=== PATIENT | female | born 1930 | race Caucasian/White ===

== ENCOUNTER 2018-12-24 15:34 | Emergency (ER) | payer OTHER, BC ==
[2018-12-24 15:56] VITALS: BP 155/70; PULSE 78; TEMP 97.4; BMI 32.3
--- NOTE | 2018-12-24 17:36 | PDOC ---
Attending Attestation - Resident Resident Name: CrissLebron - ED Attending Attestation I have performed the following: I have examined & evaluated the patient, The case was reviewed & discussed with the resident, I agree w/resident's findings & plan, Exceptions are as noted - Medical Decision Making 12/24/18 17:36 I, Dr. Angela Perera, DO, attest that this document has been prepared under my direction and personally reviewed by me in its entirety. I further attest, that it accurately reflects all work, treatment, procedures and medical decision -making performed by me. 12/24/18 19:33 a/p: 87yo female with mechanical fall at home in the kitchen, tripped in her sneakers -no loc -hit her face with abrasions and hematoma -no neck or back pain -R shoulder pain -will send for xrays, suspect humerus fx -will obtain head and c spine ct -tylenol for pain -will po challenge when head and cspine ct negaitve -no anticoags, only baby asa -will ambulate prior to dc 12/24/18 19:[address] spine [address] negaitve surgical neck fx in R humerus- follows with ortho at [facility] -placed in a sling tetanus utd po challenge given <Angela Perera - Last Filed: 12/24/18 19:33> - HPI HPI: 12/24/18 18:11 The patient is an 87 year old female with a past medical history of HTN, HLD, and hypothyroidism here today for evaluation s/p mechanical fall. The patient reports that she was walking in her kitchen when she tripped and fell landing on her right side and grazing her head on the counter. She reports pain in the upper right arm. Patient denies headache, lightheadedness. Denies fever, chills. Denies chest pain, shortness of breath. Denies nausea, vomiting, diarrhea, abdominal pain. Allergies: NKA PCP: Merlyn Sanchez - Physicial Exam PE: 12/24/18 19:39 Constitutional: Awake, alert, oriented. No acute distress. Head: Normocephalic. Atraumatic Eyes: PERRL. EOMI. Conjunctivae are not pale. ENT: Mucous membranes are moist and intact. Posterior pharynx without exudates or erythema. Uvula midline. Neck: Supple. Full ROM. No lymphadenopathy. Cardiovascular: Regular rate. Regular rhythm. S1, S2 regular. Distal pulses are 2+ and symmetric. Pulmonary/Chest: No evidence of respiratory distress. Clear to auscultation bilaterally No wheezing, rales or rhonchi. Abdominal: Soft and non-distended. There is no tenderness. No rebound, guarding or rigidity. No organomegaly. No palpable masses. Good bowel sounds. Back: No CVA tenderness. Musculoskeletal: +tenderness in right shoulder with motion. No edema. No cyanosis. No clubbing. Full range of motion in all extremities. No calf tenderness. Radial/pedal pulses are intact and 2+ bilaterally. No hip or knee tenderness. No tenderness with motion in right elbow. Skin: +hematoma right eye. +tiny puncture above right eye with no active bleeding. +abrasion on right side of lip. Skin is warm and dry. No petechiae. No purpura. Neurological: Alert and oriented to person, place, and time. Cranial nerves II -XII are grossly intact. Normal speech. Strength is grossly symmetric. No sensory deficits. Psychiatric: Good eye contact. Normal interaction, affect and behavior. <David Dior - Last Filed: 12/24/18 19:39> Attestations - Attestations 12/24/18 18:11 Documentation prepared by GORDON Garces, acting as medical office worker for Angela Perera DO. <David Dior - Last Filed: 12/24/18 19:39>
--- NOTE | 2018-12-24 18:13 | PDOC ---
History of Present Illness - General Chief Complaint: Injury Stated Complaint: FALL Time Seen by Provider: 12/24/18 16:44 History Source: Patient Exam Limitations: No Limitations - History of Present Illness Initial Comments: 12/24/18 19:04 87 yo female pmh hypothyroidism, HLD (on ASA no AC) and chronic arthritis (had cortisone injection bilateral shoulder yesterday, Ortho in [place]) presents to the ED after an unwitnessed mechanical fall in the Kitchen. Pt daughter present who states pt story is trustworthy and agrees the fall is mechanical. 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 Pt denies CP/palpitations or SOB prior to or after the fall, LOC, MEDELLIN, changes in vision/speech, N/V, weakness or sensory changes on 1 side of her body , neck pain or confusion. Pt only admits to pain in the right shoulder at this time. Past History - Past Medical History Allergies/Adverse Reactions: Allergies Allergy/AdvReac Type Severity Reaction Status Date / Time No Known Allergies Allergy Verified 08/26/12 14:07 Home Medications: Ambulatory Orders Aspirin [ASA -] 81 mg PO DAILY 12/24/18 Doxepin HCl [Sinequan -] 10 mg PO DAILY 12/24/18 Febuxostat [Uloric -] 40 mg PO DAILY 12/24/18 Levothyroxine [Synthroid -] 150 mcg PO DAILY 12/24/18 Rosuvastatin [Crestor -] 10 mg PO DAILY 12/24/18 Anemia: No Asthma: No Cancer: No Cardiac Disorders: No CVA: No COPD: No CHF: No Dementia: No Diabetes: No GI Disorders: No Disorders: No HTN: Yes Hypercholesterolemia: Yes Liver Disease: No Seizures: No Thyroid Disease: Yes (hypothyroid) - Surgical History Abdominal Surgery: No Appendectomy: No Cardiac Surgery: No Cholecystectomy: No Lung Surgery: No Neurologic Surgery: No Orthopedic Surgery: No - Suicide/Smoking/Psychosocial Hx Smoking History: Former smoker Have you smoked in the past 12 months: No Information on smoking cessation initiated: No Hx Alcohol Use: No Drug/Substance Use Hx: No Substance Use Type: None Hx Substance Use Treatment: No Review of Systems - Review of Systems Constitutional: No: Chills, Fever, Weakness HEENTM: No: Blurred Vision, Double Vision Respiratory: No: Shortness of Breath Cardiac (ROS): Yes: Edema (chronic). No: Chest Pain, Lightheadedness, Palpitations, Syncope ABD/GI: No: Abdominal Distended, Constipated, Diarrhea, Nausea, Vomiting, Abdominal cramping : No: Burning, Dysuria, Flank Pain Musculoskeletal: Yes: Other (right arm pain with ROM). No: Back Pain, Muscle Weakness Integumentary: Yes: Change in Color (bruise to right frontal bone with dry blood ) Neurological: No: Headache, Numbness, Tingling, Tremors, Weakness, Unsteady Gait , Ataxia *Physical Exam - Vital Signs Last Vital Signs Temp Pulse Resp BP Pulse Ox 97.4 F L 78 18 155/70 96 12/24/18 15:49 12/24/18 15:49 12/24/18 15:49 12/24/18 15:49 12/24/18 15:49 - Physical Exam General Appearance: Yes: Nourished, Appropriately Dressed. No: Apparent Distress HEENT: positive: EOMI, KATHY, Normal Voice, TMs Normal, Hearing Grossly Normal, Other (right frontal bone swelling with dry blood. Explored wound, no active bleeding, less then 2mm, no need for sutures. Cleaned) Neck: negative: Carotid bruit, Tender lateral, Tender midline Respiratory/Chest: positive: Lungs Clear, Normal Breath Sounds. negative: Accessory Muscle Use, Rapid RR, Crackles, Rales, Rhonchi, Stridor, Wheezing Cardiovascular: positive: Regular Rhythm, Regular Rate, S1, S2, Edema (chronic pitting, PCP aware and is treating). negative: JVD, Murmur Vascular Pulses: Dorsalis-Pedis (R): 3+, Doralis-Pedis (L): 3+ Gastrointestinal/Abdominal: positive: Flat, Soft. negative: Pulsatile Mass, Protuberent, Distended, Guarding, Rebound, Tenderness Musculoskeletal: positive: Decreased Range of Motion (right arm flexion/ extension/abdution and external rotation). negative: CVA Tenderness, Vertebral Tenderness Extremity: positive: Normal Capillary Refill, Pelvis Stable. 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 negative: Facial Droop, Numbness, Sensory Deficit, Finger to Nose (normal), Confused, Disoriented ED Treatment Course - RADIOLOGY Radiology Studies Ordered: Category Date Time Status CERVICAL SPINE CT W/O CONTR [CT] Stat CT Scan 12/24/18 16:[address] WITHOUT CONTRAST [CT] Stat CT Scan 12/24/18 16:58 Ordered HUMERUS-RIGHT [RAD] Stat Radiology 12/24/18 17:01 Ordered SHOULDER-RIGHT [RAD] Stat Radiology 12/24/18 17:01 Ordered Medical Decision Making - Medical Decision Making 88 yo female presents to ED after mechanical fall with swelling and minor lac to right lateral frontal bone (does not require sutures) and right upper arm pain. Pt holding arm in elbow flexion and internal rotation with point tenderness over lateral humerus. No deformities visualized or palpable. Upper ext equal bilaterally neurovascularly intact. Pt does not complain of MEDELLIN and neuro exam is normal Vitals stable AOX 3, NAD, does not require pain medication at this time DDX INLT: Fracture to humerous, shoulder dislocation, possible CVA/fracture Head CT neg for intracranial pathology X ray shows surgical neck fracture and greater and lesser tuberosity fracture. Fractures are not surgical and pt has Orthopedic Surgery doctors to f/u with for further care neda Right arm place in sling, instructions on use of sling as well as fracture care/ pain discussed. Strict return precautions given. Pt understands and agrees with plan. *DC/Admit/Observation/Transfer Diagnosis at time of Disposition: Fall Qualifiers: Encounter type: initial encounter Qualified Code(s): W19.XXXA - Unspecified fall, initial encounter Shoulder fracture, right Qualifiers: Encounter type: initial encounter Fracture type: closed Qualified Code(s): S42.91XA - Fracture of right shoulder girdle, part unspecified, initial encounter for closed fracture - Discharge Dispostion Disposition: HOME Condition at time of disposition: Stable Decision to Admit order: No - Referrals Referrals: Merlyn Sanchez MD [Primary Care Provider] - - Patient Instructions Printed Discharge Instructions: How to Use a Sling, How to Prevent Falls Additional Instructions: Please see your Primary Doctor within the next 48 hours. Make an appointment an see your Orthopedic doctor within the next 1 week. Keep your sling on until your appointment. Take over the counter Tylenol every 4-6 hours as needed for pain. Rest and Ice your shoulder and right right forehead 4 times a day for 20 min until swelling and pain is gone. Return to the ER for new or concerning symptoms including but not limited to: Chest Pain, shortness of breath, headaches, changes in vision or speech, weakness or numbness on 1 side of your body. Thank you. - Post Discharge Activity
[2018-12-24] MEDS ORDERED: ACETAMINOPHEN 325 MG TABLET (FP) PO ONE (19:34)
[2018-12-24] MEDS ORDERED: ACETAMINOPHEN 325 MG TABLET (FP) ONE (19:47)
== END 2018-12-24 20:00 | disposition home or self-care (01) ==
LOC: JER 15:34
DX: S42.91XA Fracture of right shoulder girdle, part unspecified, initial encounter for closed fracture (principal); W18.39XA Other fall on same level, initial encounter; Y93.89 Activity, other specified; Y92.000 Kitchen of unspecified non-institutional (private) residence as the place of occurrence of the external cause; I10 Essential (primary) hypertension; E78.5 Hyperlipidemia, unspecified; E03.9 Hypothyroidism, unspecified
CPT/HCPCS: 70450-TC; 72125-TC; 73030-TC-RT-FY; 73060-TC-RT-FY; 99281-25

== ENCOUNTER 2019-01-01 12:39 | Inpatient (IN) | payer OTHER, BC ==
[2019-01-01] MEDS: HEPARIN NA (PORCINE) 5,000 UNITS/ML 1ML VIAL SQ SCH ×2 (16:08→21:15)
[2019-01-01] MEDS: FUROSEMIDE 40 MG/4 ML INJECTABLE VIAL IVPUSH SCH (16:09)
[2019-01-01] MEDS: CEFAZOLIN 1 GM/D5W 1 GM/50 ML BAG IVPB SCH ×2 (16:09→17:22)
[2019-01-01 16:38] LABS: BASO % 0.4 % (0-2.0); HEMATOCRIT 33.9 % (32.4-45.2); HEMOGLOBIN 11.2 GM/dL (10.7-15.3); LYMPH % 18.2 % (8-40); MCH 29.5 pg (25.7-33.7); MEAN CELL VOLUME 89.1 fl (80-96); MONO % 8.8 % (3.8-10.2); NEUT % 70.6 % (42.8-82.8); PLATELET COUNT 259 K/MM3 (134-434); RDW 13.7 % (11.6-15.6); WHITE BLOOD COUNT 11.4 K/mm3 (4.0-10.0)
[2019-01-01 16:52] LABS: INR 1.04 (0.83-1.09); PROTHROMBIN TIME (PATIENT) 12.3 SEC (9.7-13.0)
[2019-01-01 16:54] LABS: ACTIVATED PTT 32.3 SECONDS (25.2-36.5)
[2019-01-01 17:06] LABS: ALBUMIN 3.7 g/dl (3.4-5.0); ALK PHOS 97 U/L (45-117); ANION GAP 10 MMOL/L (8-16); BILIRUBIN,TOTAL 0.7 mg/dL (0.2-1); BLOOD UREA NITROGEN 44 mg/dL (7-18); CHLORIDE 103 mmol/L (98-107); CO2 27 mmol/L (21-32); CREATININE 1.6 mg/dL (0.55-1.3); GLUCOSE,RANDOM 85 mg/dL (74-106); N-TERMINAL BNP 51.1 pg/ml (5-450); POTASSIUM 4.1 mmol/L (3.5-5.1); SGOT/AST 14 U/L (15-37); SGPT/ALT 16 U/L (13-61); SODIUM 140 mmol/L (136-145); TOT PROT 6.3 g/dl (6.4-8.2)
--- NOTE | 2019-01-01 17:37 | CONS ---
DATE OF CONSULTATION: 01/01/2019 PHYSICAL MEDICAINE REHABILITATION CONSULTATION HISTORY OF PRESENT ILLNESS: The patient is an 87-year-old woman with past medical history of multiple falls and chronic osteoarthritis who was admitted after she was unable to ambulate following a fall a week ago. Per her family she has fallen multiple times and has bruises throughout her right more than left knee as well as near her right orbit. She fell on or about December 24, then struck the right side of her face as well as her right shoulder. 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 CT of the cervical spine showed no fracture, multilevel disk at the facet joint changes were noted. Patient underwent imaging of her right shoulder which showed a humeral neck fracture, and the patient was placed in a sling, was to follow up with her orthopedist. Apparently she was discharged home and either fell again or was unable to function. She was seen in Dr. Sanchez's office and admitted, sent for direct admission. Patient has had no admitting blood work to date. She is going down for an ultrasound as she has swelling in both lower limbs. PAST MEDICAL AND SURGICAL HISTORY: Review shows hypothyroidism, hyperlipidemia, chronic osteoarthritis including her shoulders, possibly her knees. SOCIAL HISTORY: Lives with her in an apartment with stairs that might be a multifamily home. Premorbidly she was independently ambulatory but has fallen multiple times. REVIEW OF SYSTEMS: No headache. No lightheadedness, dizziness. No blurry vision, double vision, or change in vision. She has ecchymosis from the fall around her orbit on the right side. No nausea, vomiting, difficulty swallowing, difficulty chewing. No chest pain, shortness of breath. No fever, chills. No bowel, bladder incontinence. She complains of right shoulder pain and knee pain, multiple bruises from falls in her lower extremities including the right more than the left knee. No bowel or bladder incontinence, fevers or chills. She has swelling in both lower extremities, but no calf pain. PHYSICAL EXAMINATION: GENERAL: Overweight woman seen lying on a stretcher. She is in no acute distress. HEENT: Normocephalic but she has periorbital ecchymosis around the right eye. Her extraocular muscles appear intact. No obvious facial weakness. NECK: Reduced cervical range of motion but no palpable spasm or tenderness. EXTREMITIES: +1 to 2 pitting edema in the lower extremities, but no isolated calf tenderness. SKIN: Ecchymosis around the right orbit as well as extensive ecchymosis in the medial aspect and anterior aspect of her right knee as well as to a lesser degree in the left knee fading. NEUROMUSCULAR: She is awake, alert, oriented x3. Cranial nerves 2-12 appear grossly intact. I did not evaluate her right shoulder, but she has limited range in her right elbow. 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 She has arthritic change with crepitus in the left shoulder and limited range. In the lower extremities, she has only 2/5 hip girdle strength, 3/5 knee extensor strength on the right, 4/5 on the left. Good dorsiflexion, plantar flexion. Normal sensation to light touch throughout her upper and lower limbs. Arthritic changes are noted in both knees. Unable to stand or ambulate. She is going down for ultrasound of lower extremities. IMPRESSION: 1. Deficit to mobility, activities of daily living, multifactorial. 2. Status post multiple falls. 3. Contusion, right more than left knee, probable underlying osteoarthritis. 4. Right proximal humerus fracture sustained a week ago. 5. Underlying osteoarthritis of both shoulders. 6. Deconditioning. 7. Edema of the lower extremities. 8. Elevated body mass index. 9. Hyperlipidemia. 10. Hypothyroidism. PLAN AND SUGGESTIONS: 1. Physical therapy at the bedside. 2. Agree with ultrasound to rule out DVT. 3. The patient will probably require short-term rehabilitation in a [facility] facility. 4. DVT prophylaxis until more mobile. Subcutaneous heparin or Lovenox. 5. Skin precaution. 6. Non-weightbearing right upper extremity. 7. Sling. 8. Take patient's arm out of the sling for daily range of motion to the right elbow. 9. Bowel regimen. 10. Will follow. Thank you for this referral. DANIEL RODGERS M.D. MELANY/[id number]
[2019-01-01 18:15] VITALS: BMI 32.3
[2019-01-02] MEDS: CEFAZOLIN 1 GM/D5W 1 GM/50 ML BAG IVPB SCH ×3 (02:51→18:27)
[2019-01-02] MEDS: HEPARIN NA (PORCINE) 5,000 UNITS/ML 1ML VIAL SQ SCH ×3 (06:05→21:58)
[2019-01-02] MEDS ORDERED: LEVOTHYROXINE NA 150 MCG TABLET PO SCH ×2 (07:00→11:02)
[2019-01-02 08:02] LABS: BASO % 0.5 % (0-2.0); EOS % 1.5 % (0-4.5); HEMATOCRIT 33.5 % (32.4-45.2); HEMOGLOBIN 11.2 GM/dL (10.7-15.3); LYMPH % 22.2 % (8-40); MCH 29.6 pg (25.7-33.7); MCHC 33.6 g/dl (32.0-36.0); MEAN PLT VOLUME 8.8 fl (7.5-11.1); MONO % 7.9 % (3.8-10.2); NEUT % 67.9 % (42.8-82.8); PLATELET COUNT 267 K/MM3 (134-434); RDW 13.5 % (11.6-15.6); WHITE BLOOD COUNT 10.5 K/mm3 (4.0-10.0)
[2019-01-02 08:14] LABS: ALBUMIN 3.5 g/dl (3.4-5.0); ALK PHOS 99 U/L (45-117); ANION GAP 6 MMOL/L (8-16); BILIRUBIN,TOTAL 0.9 mg/dL (0.2-1); BLOOD UREA NITROGEN 40 mg/dL (7-18); CALCIUM 8.4 mg/dL (8.5-10.1); CHLORIDE 104 mmol/L (98-107); CO2 29 mmol/L (21-32); CREATININE 1.6 mg/dL (0.55-1.3); GLUCOSE,RANDOM 100 mg/dL (74-106); MAGNESIUM 2.4 mg/dL (1.8-2.4); POTASSIUM 4.2 mmol/L (3.5-5.1); SGOT/AST 17 U/L (15-37); SGPT/ALT 15 U/L (13-61); SODIUM 139 mmol/L (136-145); TOT PROT 5.9 g/dl (6.4-8.2)
[2019-01-02] MEDS: PANTOPRAZOLE 20 MG TABLET (FP) PO SCH (10:02)
[2019-01-02] MEDS: ASPIRIN 81 MG CHEWABLE TABLETS PO SCH (10:02)
[2019-01-02] MEDS: FUROSEMIDE 40 MG/4 ML INJECTABLE VIAL IVPUSH SCH (10:02)
--- NOTE | 2019-01-02 11:10 | CON.ORTH ---
Consult Reason for Consultation:: right shoulder fx - Past Medical History ...: No - Alcohol/Substance Use Hx Alcohol Use: No - Smoking History Smoking history: Never smoked Have you smoked in the past 12 months: No Home Medications - Allergies Allergies/Adverse Reactions: Allergies Allergy/AdvReac Type Severity Reaction Status Date / Time No Known Allergies Allergy Verified 08/26/12 14:07 - Home Medications Home Medications: Ambulatory Orders Aspirin [ASA -] 81 mg PO DAILY 12/24/18 Doxepin HCl [Sinequan -] 10 mg PO DAILY 12/24/18 Febuxostat [Uloric -] 40 mg PO DAILY 12/24/18 Levothyroxine [Synthroid -] 150 mcg PO DAILY 12/24/18 Rosuvastatin [Crestor -] 10 mg PO DAILY 12/24/18 Physical Exam for Ortho Vital Signs: Vital Signs Temperature 98 F 01/02/19 09:59 Pulse Rate 98 H 01/02/19 09:59 Respiratory Rate 18 01/02/19 09:59 Blood Pressure 121/81 01/02/19 09:59 O2 Sat by Pulse Oximetry (%) 97 01/01/19 21:00 Labs: CBC, BMP 01/02/19 06:30 01/02/19 06:30 INR, PTT INR 1.04 (0.83-1.09) 01/01/19 16:00 - Upper Extremity Shoulder: Yes: Right, Ecchymosis, Limited ROM, Pain, Swelling, Tenderness, Other (nvi) Imaging - Results X-ray: Image Reviewed Assessment/Plan 88 yo female s/p fall 1 week sustainin a proximal humerus fx. Pt has been treated by another orthopaedic who had placed her in a sling. Currently minimal pain and is feeling better. Denies any numbness or tingling. a/p right nondisplaced proximal humerus fx no surgical intervention sling ROM exercises for elbow, wrist and hand pain control f/u with orthopaedic upon d/c
--- NOTE | 2019-01-02 11:57 | EKG ---
Test Reason : Blood Pressure : / mmHG Vent. Rate : 087 BPM Atrial Rate : 087 BPM P-R Int : 170 ms QRS Dur : 082 ms QT Int : 374 ms P-R-T Axes : 045 029 051 degrees QTc Int : 450 ms NORMAL SINUS RHYTHM NONSPECIFIC T WAVE ABNORMALITY ABNORMAL ECG NO PREVIOUS ECGS AVAILABLE Confirmed by CARLO PATEL, CELIA ([id number]) on 01/02/2019 11:57:31 AM Referred By: ADELSO RENEE Confirmed By:CELIA MATOS MD
--- NOTE | 2019-01-02 11:59 | PN ---
Progress Note (short form) - Note Progress Note: ID CONSULT DICTATED CELLULITIS R LE R HUMERUS FRACTURE AZOTEMIA CONTINUE CEFAZOLIN. ELEVATION
--- NOTE | 2019-01-02 12:12 | HP ---
Admitting History and Physical - Admission Chief Complaint: sent in from PMD office yesterday for cellulitis of legs History of Present Illness: 88 yr old female she fell last week her sneaker got stuck adn she fell on her face and right arm came to ER had xray and sent to follow up with ortho . she the noticed her right leg getting red and hot went to her pMD who sent her to the ER, no fever at home patient is on ancef doppler done no dvt History Source: Patient - Past Medical History ...: No - Smoking History Smoking history: Never smoked Have you smoked in the past 12 months: No - Alcohol/Substance Use Hx Alcohol Use: No Home Medications - Allergies Allergies/Adverse Reactions: Allergies Allergy/AdvReac Type Severity Reaction Status Date / Time No Known Allergies Allergy Verified 08/26/12 14:07 - Home Medications Home Medications: Ambulatory Orders Aspirin [ASA -] 81 mg PO DAILY 12/24/18 Doxepin HCl [Sinequan -] 10 mg PO DAILY 12/24/18 Febuxostat [Uloric -] 40 mg PO DAILY 12/24/18 Levothyroxine [Synthroid -] 150 mcg PO DAILY 12/24/18 Rosuvastatin [Crestor -] 10 mg PO DAILY 12/24/18 Physical Examination Vital Signs: Vital Signs Temperature 98 F 01/02/19 09:59 Pulse Rate 98 H 01/02/19 09:59 Respiratory Rate 18 01/02/19 09:59 Blood Pressure 121/81 01/02/19 09:59 O2 Sat by Pulse Oximetry (%) 97 01/01/19 21:00 Labs: CBC, BMP 01/02/19 06:30 01/02/19 06:30 Problem List - Problems (1) Cellulitis Assessment/Plan: ID iv abx doppler no dvt dvt ppx Code(s): L03.90 - CELLULITIS, UNSPECIFIED (2) Fall Assessment/Plan: no displaced proximal humerus fracture arm in sling no surgical intervention ROM exercise with elbow wrist and hand Code(s): W19.XXXA - UNSPECIFIED FALL, INITIAL ENCOUNTER Qualifiers: Encounter type: initial encounter Qualified Code(s): W19.XXXA - Unspecified fall, initial encounter (3) Hypothyroid Assessment/Plan: tsh inc inc synthroid dose from 150 to 175 Code(s): E03.9 - HYPOTHYROIDISM, UNSPECIFIED
--- NOTE | 2019-01-02 13:45 | CONS ---
DATE OF CONSULTATION: DATE OF DICTATION: 01/02/2019 INFECTIOUS DISEASE CONSULTATION The patient is an 88-year-old female who was evaluated for cellulitis of the right lower extremity. She reports that approximately 10 days ago she fell in her kitchen after tripping over a rug. She sustained trauma to the right side of her face as well as her right upper extremity. She was seen in the emergency room where a CAT scan of the head was negative for acute infarct or bleed. She was found to have a fracture of the right humeral neck. Patient subsequently developed erythema, warmth, and swelling of the right lower extremity. She was advised admission to the hospital. Patient was admitted to the hospital and placed on IV cefazolin. A Doppler exam was performed of the legs and was negative for a DVT. She denies any associated fever or chills. No history of prior serious soft tissue infection requiring hospitalization or history of MRSA. PAST MEDICAL HISTORY: Positive for osteoarthritis, hypothyroidism, hyperlipidemia. ALLERGIES: No known allergies. MEDICATIONS: Aspirin, Sinequan, Synthroid, Crestor. SOCIAL HISTORY: Lives at home. Nonsmoker, nondrinker. SYSTEM REVIEW: Neurologic: No loss of consciousness, seizure activity, focal weakness. Cardiac: Negative chest pain or palpitations. Respiratory: Negative for cough or sputum production. Gastrointestinal: Negative vomiting or diarrhea. Genitourinary: Negative for urinary tract infection. LABORATORY DATA: White count 10.5, hematocrit 33.5, platelets 267. Creatinine 1.6. Liver enzymes normal. Blood cultures pending. PHYSICAL EXAMINATION: General: She is awake and alert, in no acute distress. Vital Signs: Temperature 98, blood pressure 123/81, pulse 98 regular, respirations 18 per minute. Head: Patient has an ecchymotic area, right periorbital area. Neck: Supple. Heart: Sounds S1, S2. No murmur. Lungs: Clear. Abdomen: Soft. Nontender. Extremities: Right upper extremity is immobilized with a splint. Two plus bilateral lower extremity edema. Confluent erythema and warmth from the area of the right ankle to below the knee. It is warm and tender to touch. There is an ecchymotic area present on the lateral aspect of the proximal leg and lateral thigh. There is slight erythema present on the left lower extremity to a much less degree from the area on the ankle to the mid tibia. IMPRESSION: 1. Bilateral lower extremity cellulitis. 2. Rule out sepsis secondary to soft tissue infection. 3. Azotemia. 4. Status post fall with right humeral neck fracture. RECOMMENDATIONS: Await cultures. Continue empiric antibiotic coverage with cefazolin 1 g IV piggyback every 8 hours. Elevation. Analgesics. Will follow. Thank you for the kind referral. LUCAS GARCIA M.D. EDEL/[id number]
[2019-01-02] MEDS: DOXEPIN HCL 10 MG CAPSULE PO SCH (15:22)
--- NOTE | 2019-01-02 17:06 | PN ---
Progress Note (short form) - Note Progress Note: VAsc[facility] Surgery Pt seen and examined. Well known from wound care clinic RLE cellulitis. S/P fall and fracture of right humerous. Cont leg elevation. Cont IV antibiotics. Will follow Parveen Larson DO
[2019-01-02] MEDS: ROSUVASTATIN CA 10 MG TABLET (FP) PO SCH (21:58)
[2019-01-02] MEDS: DOXEPIN HCL 25 MG CAPSULE PO SCH (22:03)
[2019-01-03] MEDS: CEFAZOLIN 1 GM/D5W 1 GM/50 ML BAG IVPB SCH ×3 (02:31→17:10)
[2019-01-03] MEDS ORDERED: LEVOTHYROXINE NA 150 MCG TABLET ONE (05:27)
[2019-01-03] MEDS ORDERED: LEVOTHYROXINE NA 25 MCG TABLET (FP) ONE (05:27)
[2019-01-03] MEDS: HEPARIN NA (PORCINE) 5,000 UNITS/ML 1ML VIAL SQ SCH ×3 (05:39→22:01)
[2019-01-03] MEDS: LEVOTHYROXINE 25 MCG, LEVOTHYROXINE 150 MCG PO SCH (06:02)
[2019-01-03 07:41] LABS: BASO % 0.4 % (0-2.0); EOS % 2.2 % (0-4.5); HEMATOCRIT 31.4 % (32.4-45.2); HEMOGLOBIN 10.5 GM/dL (10.7-15.3); LYMPH % 19.7 % (8-40); MCH 29.4 pg (25.7-33.7); MCHC 33.5 g/dl (32.0-36.0); MEAN CELL VOLUME 87.7 fl (80-96); MEAN PLT VOLUME 9.2 fl (7.5-11.1); MONO % 8.4 % (3.8-10.2); NEUT % 69.3 % (42.8-82.8); PLATELET COUNT 252 K/MM3 (134-434); RBC 3.58 M/mm3 (3.60-5.2); RDW 13.6 % (11.6-15.6); WHITE BLOOD COUNT 9.8 K/mm3 (4.0-10.0)
[2019-01-03 07:56] LABS: CHOLESTEROL 114 mg/dL (50-200); HDL CHOLESTEROL 42 mg/dL (40-60); TRIGLYCERIDES 108 mg/dL (0-150)
[2019-01-03 07:58] LABS: ALBUMIN 3.3 g/dl (3.4-5.0); ALK PHOS 91 U/L (45-117); ANION GAP 9 MMOL/L (8-16); BILIRUBIN,TOTAL 0.7 mg/dL (0.2-1); BLOOD UREA NITROGEN 37 mg/dL (7-18); CALCIUM 8.2 mg/dL (8.5-10.1); CHLORIDE 104 mmol/L (98-107); CO2 26 mmol/L (21-32); CREATININE 1.5 mg/dL (0.55-1.3); GLUCOSE,RANDOM 101 mg/dL (74-106); POTASSIUM 4.1 mmol/L (3.5-5.1); SGOT/AST 17 U/L (15-37); SGPT/ALT 12 U/L (13-61); SODIUM 140 mmol/L (136-145); TOT PROT 5.6 g/dl (6.4-8.2)
[2019-01-03] MEDS: PANTOPRAZOLE 20 MG TABLET (FP) PO SCH (11:11)
[2019-01-03] MEDS: DOXEPIN HCL 10 MG CAPSULE PO SCH (11:11)
[2019-01-03] MEDS: FUROSEMIDE 40 MG/4 ML INJECTABLE VIAL IVPUSH SCH (11:11)
[2019-01-03] MEDS: ASPIRIN 81 MG CHEWABLE TABLETS PO SCH (11:11)
--- NOTE | 2019-01-03 14:35 | PN ---
Progress Note, Physician - Current Medication List Current Medications: Active Medications Acetaminophen (Tylenol -) 650 mg PO Q4H PRN PRN Reason: PAIN OR FEVER Aspirin (Asa -) 81 mg PO DAILY [facility] Last Admin: 01/03/19 11:11 Dose: 81 mg Doxepin HCl (Sinequan -) 25 mg PO HS [facility] Last Admin: 01/02/19 22:03 Dose: 25 mg Doxepin HCl (Sinequan -) 10 mg PO DAILY [facility] Last Admin: 01/03/19 11:11 Dose: 10 mg Furosemide (Lasix Injection -) 40 mg IVPUSH DAILY [facility] Last Admin: 01/03/19 11:11 Dose: 40 mg Heparin Sodium (Porcine) (Heparin -) 5,000 unit SQ TID [facility] Last Admin: 01/03/19 13:41 Dose: 5,000 unit Cefazolin Sodium (Ancef 1 Gm Premixed Ivpb -) 1 gm in 50 mls @ 100 mls/hr IVPB Q8H-IV [facility] Last Admin: 01/03/19 11:11 Dose: 100 mls/hr Levothyroxine Sodium 25 mcg/ (Levothyroxine Sodium 150 mcg) 175 mcg PO DAILY@ 0700 [facility] Last Admin: 01/03/19 06:02 Dose: 175 mcg Pantoprazole Sodium (Protonix -) 20 mg PO DAILY [facility] Last Admin: 01/03/19 11:11 Dose: 20 mg Rosuvastatin Calcium (Crestor -) 10 mg PO HS [facility] Last Admin: 01/02/19 21:58 Dose: 10 mg - Objective Vital Signs: Vital Signs Temperature 98.9 F 01/03/19 10:00 Pulse Rate 94 H 01/03/19 10:00 Respiratory Rate 20 01/03/19 10:00 Blood Pressure 132/60 01/03/19 10:00 O2 Sat by Pulse Oximetry (%) 99 01/03/19 09:00 Cardiovascular: Yes: Regular Rate and Rhythm Respiratory: Yes: Regular, CTA Bilaterally Gastrointestinal: Yes: Normal Bowel Sounds, Soft Labs: CBC, BMP 01/03/19 05:00 01/03/19 05:00 INR, PTT INR 1.04 (0.83-1.09) 01/01/19 16:00 Problem List - Problems (1) Cellulitis Assessment/Plan: ID iv abx doppler no dvt dvt ppx Code(s): L03.90 - CELLULITIS, UNSPECIFIED (2) Hypothyroid Assessment/Plan: synthroid to 175 Code(s): E03.9 - HYPOTHYROIDISM, UNSPECIFIED (3) Fall Assessment/Plan: PT__SNF Code(s): W19.XXXA - UNSPECIFIED FALL, INITIAL ENCOUNTER Qualifiers: Encounter type: initial encounter Qualified Code(s): W19.XXXA - Unspecified fall, initial encounter (4) Shoulder fracture, right Assessment/Plan: proximal humerus fracture arm in sling no surgical intervention ROM exercise with elbow wrist and hand Code(s): S42.91XA - FRACTURE OF RIGHT SHOULDER GIRDLE, PART UNSP, INIT Qualifiers: Encounter type: initial encounter Fracture type: closed Qualified Code(s) : S42.91XA - Fracture of right shoulder girdle, part unspecified, initial encounter for closed fracture (5) Edema Assessment/Plan: -Lasix Code(s): R60.9 - EDEMA, UNSPECIFIED
[2019-01-03] MEDS: ROSUVASTATIN CA 10 MG TABLET (FP) PO SCH (22:01)
[2019-01-03] MEDS: DOXEPIN HCL 25 MG CAPSULE PO SCH (22:43)
[2019-01-04] MEDS: CEFAZOLIN 1 GM/D5W 1 GM/50 ML BAG IVPB SCH ×3 (01:02→17:20)
[2019-01-04] MEDS ORDERED: LEVOTHYROXINE NA 25 MCG TABLET (FP) ONE (06:27)
[2019-01-04] MEDS ORDERED: LEVOTHYROXINE NA 150 MCG TABLET ONE (06:27)
[2019-01-04] MEDS: LEVOTHYROXINE 25 MCG, LEVOTHYROXINE 150 MCG PO SCH (06:32)
[2019-01-04] MEDS: HEPARIN NA (PORCINE) 5,000 UNITS/ML 1ML VIAL SQ SCH ×3 (06:32→22:00)
[2019-01-04 08:26] LABS: ALBUMIN 3.2 g/dl (3.4-5.0); ALK PHOS 90 U/L (45-117); ANION GAP 5 MMOL/L (8-16); BILIRUBIN,TOTAL 0.7 mg/dL (0.2-1); BLOOD UREA NITROGEN 34 mg/dL (7-18); CALCIUM 8.2 mg/dL (8.5-10.1); CHLORIDE 104 mmol/L (98-107); CO2 27 mmol/L (21-32); CREATININE 1.4 mg/dL (0.55-1.3); GLUCOSE,RANDOM 93 mg/dL (74-106); POTASSIUM 4.1 mmol/L (3.5-5.1); SGOT/AST 14 U/L (15-37); SGPT/ALT 11 U/L (13-61); SODIUM 136 mmol/L (136-145); TOT PROT 5.7 g/dl (6.4-8.2)
[2019-01-04 08:47] LABS: BASO % 0.6 % (0-2.0); EOS % 1.9 % (0-4.5); HEMATOCRIT 31.2 % (32.4-45.2); HEMOGLOBIN 10.5 GM/dL (10.7-15.3); LYMPH % 22.6 % (8-40); MCH 29.8 pg (25.7-33.7); MCHC 33.8 g/dl (32.0-36.0); MEAN CELL VOLUME 88.2 fl (80-96); MEAN PLT VOLUME 8.7 fl (7.5-11.1); MONO % 7.9 % (3.8-10.2); PLATELET COUNT 252 K/MM3 (134-434); RBC 3.53 M/mm3 (3.60-5.2); RDW 13.4 % (11.6-15.6); WHITE BLOOD COUNT 9.4 K/mm3 (4.0-10.0)
[2019-01-04] MEDS: FUROSEMIDE 40 MG TABLET (FP) PO SCH (10:23)
[2019-01-04] MEDS: DOXEPIN HCL 10 MG CAPSULE PO SCH (10:23)
[2019-01-04] MEDS: PANTOPRAZOLE 20 MG TABLET (FP) PO SCH (10:23)
[2019-01-04] MEDS: ASPIRIN 81 MG CHEWABLE TABLETS PO SCH (10:23)
--- NOTE | 2019-01-04 12:25 | PN ---
Progress Note, Physician Chief Complaint: AWAKE ALERT EVENTS AND NOTES REVIEWED - Current Medication List Current Medications: Active Medications Acetaminophen (Tylenol -) 650 mg PO Q4H PRN PRN Reason: PAIN OR FEVER Aspirin (Asa -) 81 mg PO DAILY [facility] Last Admin: 01/04/19 10:23 Dose: 81 mg Doxepin HCl (Sinequan -) 25 mg PO HS [facility] Last Admin: 01/03/19 22:43 Dose: 25 mg Doxepin HCl (Sinequan -) 10 mg PO DAILY [facility] Last Admin: 01/04/19 10:23 Dose: 10 mg Furosemide (Lasix -) 40 mg PO DAILY [facility] Last Admin: 01/04/19 10:23 Dose: 40 mg Heparin Sodium (Porcine) (Heparin -) 5,000 unit SQ TID [facility] Last Admin: 01/04/19 06:32 Dose: 5,000 unit Cefazolin Sodium (Ancef 1 Gm Premixed Ivpb -) 1 gm in 50 mls @ 100 mls/hr IVPB Q8H-IV [facility] Last Admin: 01/04/19 10:22 Dose: 100 mls/hr Levothyroxine Sodium 25 mcg/ (Levothyroxine Sodium 150 mcg) 175 mcg PO DAILY@ 0700 [facility] Last Admin: 01/04/19 06:32 Dose: 175 mcg Pantoprazole Sodium (Protonix -) 20 mg PO DAILY [facility] Last Admin: 01/04/19 10:23 Dose: 20 mg Rosuvastatin Calcium (Crestor -) 10 mg PO HS [facility] Last Admin: 01/03/19 22:01 Dose: 10 mg - Objective Vital Signs: Vital Signs Temperature 98.9 F 01/04/19 09:00 Pulse Rate 89 01/04/19 09:00 Respiratory Rate 18 01/04/19 09:00 Blood Pressure 152/88 01/04/19 09:00 O2 Sat by Pulse Oximetry (%) 98 01/04/19 09:00 Constitutional: Yes: Mild Distress Eyes: Yes: WNL HENT: Yes: WNL Neck: Yes: WNL Cardiovascular: Yes: Regular Rate and Rhythm Respiratory: Yes: WNL Gastrointestinal: Yes: WNL Genitourinary: Yes: WNL Musculoskeletal: Yes: Back Pain, Joint Swelling, Muscle Pain, Muscle Weakness Extremities: Yes: Erythema Edema: Yes Edema: LLE: 1+, RLE: 1+ Peripheral Pulses WNL: Yes Integumentary: Yes: Erythema, Rash, Venous Stasis Changes Wound/Incision: Yes: Open to air Neurological: Yes: Pre-Existing Deficit, Weakness ...Motor Strength: LUE, LLE, RUE, RLE Psychiatric: Yes: WNL Labs: CBC, BMP 01/04/19 06:10 01/04/19 06:10 INR, PTT INR 1.04 (0.83-1.09) 01/01/19 16:00 Problem List - Problems (1) Cellulitis Code(s): L03.90 - CELLULITIS, UNSPECIFIED (2) Edema Code(s): R60.9 - EDEMA, UNSPECIFIED (3) Hypothyroid Code(s): E03.9 - HYPOTHYROIDISM, UNSPECIFIED (4) Fall Code(s): W19.XXXA - UNSPECIFIED FALL, INITIAL ENCOUNTER Qualifiers: Encounter type: initial encounter Qualified Code(s): W19.XXXA - Unspecified fall, initial encounter (5) Shoulder fracture, right Code(s): S42.91XA - FRACTURE OF RIGHT SHOULDER GIRDLE, PART UNSP, INIT Qualifiers: Encounter type: initial encounter Fracture type: closed Qualified Code(s) : S42.91XA - Fracture of right shoulder girdle, part unspecified, initial encounter for closed fracture Assessment/Plan IV ABX CONTINUE FOR LOWER EXTREMITY CELLULITIS OOB TO CHAIR PT EVAL PAIN CONTROL SN[facility]
--- NOTE | 2019-01-04 13:48 | PN ---
Progress Note, Physician History of Present Illness: OOB IN CHAIR NO C/O LEG PAIN NO C/O FEVER/ CHILLS WBC WNL BC (-) - Current Medication List Current Medications: Active Medications Acetaminophen (Tylenol -) 650 mg PO Q4H PRN PRN Reason: PAIN OR FEVER Aspirin (Asa -) 81 mg PO DAILY [facility] Last Admin: 01/04/19 10:23 Dose: 81 mg Doxepin HCl (Sinequan -) 25 mg PO HS [facility] Last Admin: 01/03/19 22:43 Dose: 25 mg Doxepin HCl (Sinequan -) 10 mg PO DAILY [facility] Last Admin: 01/04/19 10:23 Dose: 10 mg Furosemide (Lasix -) 40 mg PO DAILY [facility] Last Admin: 01/04/19 10:23 Dose: 40 mg Heparin Sodium (Porcine) (Heparin -) 5,000 unit SQ TID [facility] Last Admin: 01/04/19 06:32 Dose: 5,000 unit Cefazolin Sodium (Ancef 1 Gm Premixed Ivpb -) 1 gm in 50 mls @ 100 mls/hr IVPB Q8H-IV [facility] Last Admin: 01/04/19 10:22 Dose: 100 mls/hr Levothyroxine Sodium 25 mcg/ (Levothyroxine Sodium 150 mcg) 175 mcg PO DAILY@ 0700 [facility] Last Admin: 01/04/19 06:32 Dose: 175 mcg Pantoprazole Sodium (Protonix -) 20 mg PO DAILY [facility] Last Admin: 01/04/19 10:23 Dose: 20 mg Rosuvastatin Calcium (Crestor -) 10 mg PO HS [facility] Last Admin: 01/03/19 22:01 Dose: 10 mg - Objective Vital Signs: Vital Signs Temperature 98.9 F 01/04/19 09:00 Pulse Rate 89 01/04/19 09:00 Respiratory Rate 18 01/04/19 09:00 Blood Pressure 152/88 01/04/19 09:00 O2 Sat by Pulse Oximetry (%) 98 01/04/19 09:00 Constitutional: Yes: No Distress Eyes: Yes: Conjunctiva Clear Cardiovascular: Yes: Regular Rate and Rhythm, S1, S2 Respiratory: Yes: CTA Bilaterally Extremities: Yes: Other (DECREASED ERYTHEMA/ WARMTH LE) Edema: Yes Edema: LLE: 1+, RLE: 1+ Labs: CBC, BMP 01/04/19 06:10 01/04/19 06:10 INR, PTT INR 1.04 (0.83-1.09) 01/01/19 16:00 Assessment/Plan CELLULITIS LE AZOTEMIA R HUMERUS FRACTURE CONTINUE CEFAZOLIN, ELEVATION
[2019-01-04] MEDS: ACETAMINOPHEN 325 MG TABLET (FP) PO PRN (21:51)
[2019-01-04] MEDS: DOXEPIN HCL 25 MG CAPSULE PO SCH (21:51)
[2019-01-04] MEDS: ROSUVASTATIN CA 10 MG TABLET (FP) PO SCH (21:51)
[2019-01-05] MEDS: CEFAZOLIN 1 GM/D5W 1 GM/50 ML BAG IVPB SCH ×3 (02:23→17:04)
[2019-01-05] MEDS ORDERED: LEVOTHYROXINE NA 25 MCG TABLET (FP) ONE (05:55)
[2019-01-05] MEDS ORDERED: LEVOTHYROXINE NA 150 MCG TABLET ONE (05:55)
[2019-01-05] MEDS: LEVOTHYROXINE 25 MCG, LEVOTHYROXINE 150 MCG PO SCH (06:11)
[2019-01-05] MEDS: HEPARIN NA (PORCINE) 5,000 UNITS/ML 1ML VIAL SQ SCH ×3 (06:12→21:55)
[2019-01-05] MEDS: DOXEPIN HCL 10 MG CAPSULE PO SCH (09:58)
[2019-01-05] MEDS: ASPIRIN 81 MG CHEWABLE TABLETS PO SCH (09:58)
[2019-01-05] MEDS: PANTOPRAZOLE 20 MG TABLET (FP) PO SCH (09:59)
[2019-01-05] MEDS: ACETAMINOPHEN 325 MG TABLET (FP) PO PRN (09:59)
[2019-01-05] MEDS: FUROSEMIDE 40 MG TABLET (FP) PO SCH (09:59)
--- NOTE | 2019-01-05 13:32 | PN ---
Progress Note, Physician Chief Complaint: patient seen and examined on iv antibiotic for cellulitis periorbital ecchymosis improving - Current Medication List Current Medications: Active Medications Acetaminophen (Tylenol -) 650 mg PO Q4H PRN PRN Reason: PAIN OR FEVER Last Admin: 01/05/19 09:59 Dose: 650 mg Aspirin (Asa -) 81 mg PO DAILY [facility] Last Admin: 01/05/19 09:58 Dose: 81 mg Doxepin HCl (Sinequan -) 25 mg PO [facility] Last Admin: 01/04/19 21:51 Dose: 25 mg Doxepin HCl (Sinequan -) 10 mg PO DAILY [facility] Last Admin: 01/05/19 09:58 Dose: 10 mg Furosemide (Lasix -) 40 mg PO DAILY [facility] Last Admin: 01/05/19 09:59 Dose: 40 mg Heparin Sodium (Porcine) (Heparin -) 5,000 unit SQ TID [facility] Last Admin: 01/05/19 06:12 Dose: 5,000 unit Cefazolin Sodium (Ancef 1 Gm Premixed Ivpb -) 1 gm in 50 mls @ 100 mls/hr IVPB Q8H-IV [facility] Last Admin: 01/05/19 09:58 Dose: 100 mls/hr Levothyroxine Sodium 25 mcg/ (Levothyroxine Sodium 150 mcg) 175 mcg PO DAILY@ 0700 [facility] Last Admin: 01/05/19 06:11 Dose: 175 mcg Pantoprazole Sodium (Protonix -) 20 mg PO DAILY [facility] Last Admin: 01/05/19 09:59 Dose: 20 mg Rosuvastatin Calcium (Crestor -) 10 mg PO [facility] Last Admin: 01/04/19 21:51 Dose: 10 mg - Objective Vital Signs: Vital Signs Temperature 97.9 F 01/05/19 09:00 Pulse Rate 96 H 01/05/19 09:00 Respiratory Rate 20 01/05/19 09:00 Blood Pressure 154/59 L 01/05/19 09:00 O2 Sat by Pulse Oximetry (%) 96 01/05/19 09:00 Constitutional: Yes: Calm Cardiovascular: Yes: Regular Rate and Rhythm, S1, S2 Respiratory: Yes: CTA Bilaterally Gastrointestinal: Yes: Normal Bowel Sounds, Soft Musculoskeletal: Yes: Other (arm in sling) Extremities: Yes: Erythema (improving) Labs: CBC, BMP 01/04/19 06:10 01/04/19 06:10 INR, PTT INR 1.04 (0.83-1.09) 01/01/19 16:00 Problem List - Problems (1) Cellulitis Assessment/Plan: iv abx doppler no dvt dvt ppx Code(s): L03.90 - CELLULITIS, UNSPECIFIED (2) Fall Assessment/Plan: no displaced proximal humerus fracture arm in sling ortho saw patient no surgical intervention ROM exercise with elbow wrist and hand Code(s): W19.XXXA - UNSPECIFIED FALL, INITIAL ENCOUNTER Qualifiers: Encounter type: initial encounter Qualified Code(s): W19.XXXA - Unspecified fall, initial encounter (3) Hypothyroid Assessment/Plan: tsh inc inc synthroid dose from 150 to 175 Code(s): E03.9 - HYPOTHYROIDISM, UNSPECIFIED
--- NOTE | 2019-01-05 17:28 | PN ---
Progress Note, Physician History of Present Illness: OOB IN CHAIR NO C/O LEG PAIN NO C/O FEVER/ CHILLS WBC WNL BC (-) - Current Medication List Current Medications: Active Medications Acetaminophen (Tylenol -) 650 mg PO Q4H PRN PRN Reason: PAIN OR FEVER Last Admin: 01/05/19 09:59 Dose: 650 mg Aspirin (Asa -) 81 mg PO DAILY [facility] Last Admin: 01/05/19 09:58 Dose: 81 mg Doxepin HCl (Sinequan -) 25 mg PO HS [facility] Last Admin: 01/04/19 21:51 Dose: 25 mg Doxepin HCl (Sinequan -) 10 mg PO DAILY [facility] Last Admin: 01/05/19 09:58 Dose: 10 mg Furosemide (Lasix -) 40 mg PO DAILY [facility] Last Admin: 01/05/19 09:59 Dose: 40 mg Heparin Sodium (Porcine) (Heparin -) 5,000 unit SQ TID [facility] Last Admin: 01/05/19 13:50 Dose: 5,000 unit Cefazolin Sodium (Ancef 1 Gm Premixed Ivpb -) 1 gm in 50 mls @ 100 mls/hr IVPB Q8H-IV [facility] Last Admin: 01/05/19 17:04 Dose: 100 mls/hr Levothyroxine Sodium 25 mcg/ (Levothyroxine Sodium 150 mcg) 175 mcg PO DAILY@ 0700 [facility] Last Admin: 01/05/19 06:11 Dose: 175 mcg Pantoprazole Sodium (Protonix -) 20 mg PO DAILY [facility] Last Admin: 01/05/19 09:59 Dose: 20 mg Rosuvastatin Calcium (Crestor -) 10 mg PO [facility] Last Admin: 01/04/19 21:51 Dose: 10 mg - Objective Vital Signs: Vital Signs Temperature 98.1 F 01/05/19 13:36 Pulse Rate 101 H 01/05/19 13:36 Respiratory Rate 18 01/05/19 13:36 Blood Pressure 133/65 01/05/19 13:36 O2 Sat by Pulse Oximetry (%) 96 01/05/19 09:00 Constitutional: Yes: No Distress, Obese Cardiovascular: Yes: Regular Rate and Rhythm, S1, S2 Respiratory: Yes: CTA Bilaterally Gastrointestinal: Yes: Normal Bowel Sounds, Soft Extremities: Yes: Other (DECREASED ERYTHEMA/ WARMTH R LE) Labs: CBC, BMP 01/04/19 06:10 01/04/19 06:10 INR, PTT INR 1.04 (0.83-1.09) 01/01/19 16:00 Assessment/Plan CELLULITIS LE IMPROVED AZOTEMIA R HUMERUS FRACTURE CONTINUE CEFAZOLIN, ELEVATION
[2019-01-05] MEDS: DOXEPIN HCL 25 MG CAPSULE PO SCH (21:55)
[2019-01-05] MEDS: ROSUVASTATIN CA 10 MG TABLET (FP) PO SCH (21:55)
[2019-01-06] MEDS: CEFAZOLIN 1 GM/D5W 1 GM/50 ML BAG IVPB SCH ×3 (02:02→17:06)
[2019-01-06] MEDS ORDERED: LEVOTHYROXINE NA 25 MCG TABLET (FP) ONE (05:40)
[2019-01-06] MEDS ORDERED: LEVOTHYROXINE NA 150 MCG TABLET ONE (05:40)
[2019-01-06] MEDS: HEPARIN NA (PORCINE) 5,000 UNITS/ML 1ML VIAL SQ SCH ×3 (06:05→21:58)
[2019-01-06] MEDS: LEVOTHYROXINE 25 MCG, LEVOTHYROXINE 150 MCG PO SCH (06:05)
[2019-01-06] MEDS ORDERED: FUROSEMIDE 40 MG/4 ML INJECTABLE VIAL IVPUSH ONE (09:26)
--- NOTE | 2019-01-06 09:29 | DS ---
Physical Examination Vital Signs: Vital Signs Temperature 97.9 F 01/06/19 06:00 Pulse Rate 89 01/06/19 06:00 Respiratory Rate 20 01/06/19 06:00 Blood Pressure 115/65 01/06/19 06:00 O2 Sat by Pulse Oximetry (%) 97 01/05/19 21:00 Labs: CBC, BMP 01/04/19 06:10 01/04/19 06:10 Discharge Summary Reason For Visit: CELLULITIS Current Active Problems Cellulitis (Acute) Edema (Acute) Hypothyroid (Acute) Hospital Course: - Problems (1) Cellulitis Assessment/Plan: ID iv abx--to po doppler no dvt dvt ppx Code(s): L03.90 - CELLULITIS, UNSPECIFIED (2) Hypothyroid Assessment/Plan: synthroid to 175 Code(s): E03.9 - HYPOTHYROIDISM, UNSPECIFIED (3) Fall Assessment/Plan: PT__SNF Code(s): W19.XXXA - UNSPECIFIED FALL, INITIAL ENCOUNTER Qualifiers: Encounter type: initial encounter Qualified Code(s): W19.XXXA - Unspecified fall, initial encounter (4) Shoulder fracture, right Assessment/Plan: proximal humerus fracture arm in sling no surgical intervention ROM exercise with elbow wrist and hand Code(s): S42.91XA - FRACTURE OF RIGHT SHOULDER GIRDLE, PART UNSP, INIT Qualifiers: Encounter type: initial encounter Fracture type: closed Qualified Code(s) : S42.91XA - Fracture of right shoulder girdle, part unspecified, initial encounter for closed fracture (5) Edema Assessment/Plan: -Lasix give additional dose today increase oral starting am Code(s): R60.9 - EDEMA, UNSPECIFIED d/w pt agrees to go [facility] Condition: Improved - Instructions Referrals: Merlyn Sanchez MD [Staff Physician] - Disposition: [facility] - Home Medications Comprehensive Discharge Medication List: Ambulatory Orders Aspirin [ASA -] 81 mg PO DAILY 12/24/18 Rosuvastatin [Crestor -] 10 mg PO DAILY 12/24/18 Cephalexin Monohydrate [Keflex -] 500 mg PO Q8H #21 capsule 01/06/19 Doxepin HCl [Sinequan -] 10 mg PO DAILY capsule 01/06/19 Doxepin HCl [Sinequan -] 25 mg PO HS capsule 01/06/19 Furosemide [Lasix -] 80 mg PO DAILY tablet 01/06/19 Heparin - 5,000 unit SQ TID vial 01/06/19 Levothyroxine [Synthroid -] 175 mcg PO DAILY@0700 tablet 01/06/19 Pantoprazole Sodium [Protonix -] 20 mg PO DAILY tablet.ec 01/06/19
[2019-01-06] MEDS: DOXEPIN HCL 10 MG CAPSULE PO SCH (09:43)
[2019-01-06] MEDS: ASPIRIN 81 MG CHEWABLE TABLETS PO SCH (09:43)
[2019-01-06] MEDS: PANTOPRAZOLE 20 MG TABLET (FP) PO SCH (09:43)
--- NOTE | 2019-01-06 16:03 | PN ---
Progress Note (short form) - Note Progress Note: AWAITING PLACEMENT TO [facility] PER DAUGHTER FORMS AND PAPERS COMPLETED NO ACUTE DISTRESS Problem List - Problems (1) Cellulitis Code(s): L03.90 - CELLULITIS, UNSPECIFIED (2) Edema Code(s): R60.9 - EDEMA, UNSPECIFIED (3) Hypothyroid Code(s): E03.9 - HYPOTHYROIDISM, UNSPECIFIED (4) Fall Code(s): W19.XXXA - UNSPECIFIED FALL, INITIAL ENCOUNTER Qualifiers: Encounter type: initial encounter Qualified Code(s): W19.XXXA - Unspecified fall, initial encounter (5) Shoulder fracture, right Code(s): S42.91XA - FRACTURE OF RIGHT SHOULDER GIRDLE, PART UNSP, INIT Qualifiers: Encounter type: initial encounter Fracture type: closed Qualified Code(s) : S42.91XA - Fracture of right shoulder girdle, part unspecified, initial encounter for closed fracture
[2019-01-06] MEDS ORDERED: PT OWN MED DRAWER 7, Y5N ONE (20:25)
[2019-01-06] MEDS: ACETAMINOPHEN 325 MG TABLET (FP) PO PRN (21:58)
[2019-01-06] MEDS: ROSUVASTATIN CA 10 MG TABLET (FP) PO SCH (21:58)
[2019-01-06] MEDS: DOXEPIN HCL 25 MG CAPSULE PO SCH (21:58)
[2019-01-07] MEDS: CEFAZOLIN 1 GM/D5W 1 GM/50 ML BAG IVPB SCH ×2 (02:06→09:29)
[2019-01-07] MEDS ORDERED: LEVOTHYROXINE NA 25 MCG TABLET (FP) ONE (05:33)
[2019-01-07] MEDS ORDERED: LEVOTHYROXINE NA 150 MCG TABLET ONE (05:33)
[2019-01-07] MEDS: HEPARIN NA (PORCINE) 5,000 UNITS/ML 1ML VIAL SQ SCH ×2 (06:19→15:34)
[2019-01-07] MEDS: LEVOTHYROXINE 25 MCG, LEVOTHYROXINE 150 MCG PO SCH (06:19)
[2019-01-07] MEDS: PANTOPRAZOLE 20 MG TABLET (FP) PO SCH (09:28)
[2019-01-07] MEDS: ASPIRIN 81 MG CHEWABLE TABLETS PO SCH (09:28)
[2019-01-07] MEDS ORDERED: FUROSEMIDE 40 MG TABLET (FP) PO SCH (10:00)
[2019-01-07] MEDS ORDERED: PT OWN MED DRAWER 7, Y5N ONE ×2 (10:17→14:14)
[2019-01-07] MEDS: DOXEPIN HCL 10 MG CAPSULE PO SCH (10:21)
[2019-01-07 14:16] VITALS: BP 121/73; PULSE 93; TEMP 97.9
--- NOTE | 2019-01-07 15:58 | PN ---
Progress Note, Physician - Current Medication List Current Medications: Active Medications Acetaminophen (Tylenol -) 650 mg PO Q4H PRN PRN Reason: PAIN OR FEVER Last Admin: 01/06/19 21:58 Dose: 650 mg Aspirin (Asa -) 81 mg PO DAILY [facility] Last Admin: 01/07/19 09:28 Dose: 81 mg Cephalexin HCl (Keflex -) 500 mg PO BID [facility] Doxepin HCl (Sinequan -) 25 mg PO HS [facility] Last Admin: 01/06/19 21:58 Dose: 25 mg Doxepin HCl (Sinequan -) 10 mg PO DAILY [facility] Last Admin: 01/07/19 10:21 Dose: 10 mg Furosemide (Lasix -) 80 mg PO DAILY [facility] Last Admin: 01/07/19 09:28 Dose: 80 mg Heparin Sodium (Porcine) (Heparin -) 5,000 unit SQ TID [facility] Last Admin: 01/07/19 15:34 Dose: 5,000 unit Levothyroxine Sodium 25 mcg/ (Levothyroxine Sodium 150 mcg) 175 mcg PO DAILY@ 0700 [facility] Last Admin: 01/07/19 06:19 Dose: 175 mcg Pantoprazole Sodium (Protonix -) 20 mg PO DAILY [facility] Last Admin: 01/07/19 09:28 Dose: 20 mg Rosuvastatin Calcium (Crestor -) 10 mg PO [facility] Last Admin: 01/06/19 21:58 Dose: 10 mg - Objective Vital Signs: Vital Signs Temperature 97.9 F 01/07/19 14:14 Pulse Rate 93 H 01/07/19 14:14 Respiratory Rate 20 01/07/19 14:14 Blood Pressure 121/73 01/07/19 14:14 O2 Sat by Pulse Oximetry (%) 99 01/06/19 21:00 Cardiovascular: Yes: Regular Rate and Rhythm Respiratory: Yes: Regular, CTA Bilaterally Gastrointestinal: Yes: Normal Bowel Sounds, Soft Edema: Yes Labs: CBC, BMP 01/04/19 06:10 01/04/19 06:10 INR, PTT INR 1.04 (0.83-1.09) 01/01/19 16:00 Problem List - Problems (1) Cellulitis Assessment/Plan: ID iv abx--keflex doppler no dvt dvt ppx Code(s): L03.90 - CELLULITIS, UNSPECIFIED (2) Hypothyroid Assessment/Plan: synthroid to 175 Code(s): E03.9 - HYPOTHYROIDISM, UNSPECIFIED (3) Fall Assessment/Plan: PT__SNF Code(s): W19.XXXA - UNSPECIFIED FALL, INITIAL ENCOUNTER Qualifiers: Encounter type: initial encounter Qualified Code(s): W19.XXXA - Unspecified fall, initial encounter (4) Shoulder fracture, right Assessment/Plan: proximal humerus fracture arm in sling no surgical intervention ROM exercise with elbow wrist and hand Code(s): S42.91XA - FRACTURE OF RIGHT SHOULDER GIRDLE, PART UNSP, INIT Qualifiers: Encounter type: initial encounter Fracture type: closed Qualified Code(s) : S42.91XA - Fracture of right shoulder girdle, part unspecified, initial encounter for closed fracture (5) Edema Assessment/Plan: -Lasix -monitor renal function closely Code(s): R60.9 - EDEMA, UNSPECIFIED
[2019-01-07] MEDS ORDERED: CEPHALEXIN MONOHYDRATE 500 MG CAPSULE (UD) PO SCH (22:00)
== END 2019-01-07 16:37 | DRG 603 ==
LOC: J7W 12:54
PROVIDERS: ADMIT Family Medicine; ATTEND Family Medicine
DX: L03.115 Cellulitis of right lower limb (principal); E03.9 Hypothyroidism, unspecified; R60.9 Edema, unspecified; S42.201D Unspecified fracture of upper end of right humerus, subsequent encounter for fracture with routine healing; E66.9 Obesity, unspecified; Z68.32 Body mass index [BMI] 32.0-32.9, adult; W19.XXXD Unspecified fall, subsequent encounter
CPT/HCPCS: 36415; 71045-TC-FY; 71250-TC; 73030-TC-RT-FY; 76775-TC; 76856-TC; 80053; 80061; 82728; 83721; 83735; 83880; 84443; 85025; 85610; 85730; 87040; 93005; 93010; 93970-TC; 97116-GP; 97162-GP; J1644

== ENCOUNTER 2021-03-15 07:48 | Day surgery (SDC) | payer OTHER, BC ==
[2021-03-10 11:20] VITALS: BMI 29.0
[2021-03-15] MEDS: TROPICAMIDE 1% OPHTH SOLN 15 ML BOTTLE ONE ×6 (07:30→09:00)
[2021-03-15] MEDS: PHENYLEPHRINE 2.5% OPHTH SOLN 15 ML BOTTLE ONE ×6 (07:30→09:00)
[2021-03-15] MEDS: CYCLOPENTOLATE 2% OPHTH SOLN 2 ML BOTTLE ONE ×6 (07:30→09:00)
[2021-03-15] MEDS: CIPROFLOXACIN 0.3% EYE DROPS 5 ML BOTTLE ONE ×6 (07:30→09:00)
[2021-03-15] MEDS ORDERED: TETRACAINE 0.5% OPHTH SOLN 2 ML BOTTLE ONE (10:52)
[2021-03-15] MEDS ORDERED: CARBACHOL 0.01% INTRA-OCULAR 1.5 ML VIAL ONE (10:52)
[2021-03-15] MEDS ORDERED: LIDOCAINE 1% P/F 10 MG/ML VIAL ONE (10:52)
[2021-03-15] MEDS ORDERED: NEO/POLYMYX B SULF/DEXAMETH OPHTHALMIC 5ML BOTTLE ONE (10:52)
[2021-03-15] MEDS ORDERED: EPINEPHrine/PF 1 MG/1 ML (1:1,000) AMPULE ONE (10:52)
[2021-03-15] MEDS ORDERED: BSS (NA/CA/MG/K) BALANCED SALT SOLUTION OPHTH SOLN 15 ML BOTTLE ONE (10:52)
[2021-03-15] MEDS ORDERED: MIDAZOLAM HCL 2 MG/2 ML SINGLE DOSE VIAL ONE (11:03)
[2021-03-15 12:17] VITALS: BP 130/65; PULSE 61; TEMP 97.7
[2021-03-15] MEDS ORDERED: ACETAMINOPHEN 325 MG TABLET (FP) PO PRN (12:41)
[2021-03-15] MEDS ORDERED: ONDANSETRON 4 MG/2 ML VIAL IVPUSH PRN (12:41)
[2021-03-15] MEDS ORDERED: LACTATED RINGERS SOLUTION 1,000 ML IV SCH (12:45)
== END 2021-03-15 12:16 | disposition home or self-care (01) ==
LOC: FASU 07:48
PROVIDERS: ATTEND Ophthalmology
PROC: 08RK3JZ Replacement of Left Lens with Synthetic Substitute, Percutaneous Approach (ICD-10-PCS; principal; 2021-03-15 11:08)
DX: H26.8 Other specified cataract (principal)

== ENCOUNTER 2021-05-23 00:10 | Inpatient (IN) | payer OTHER, BC ==
[2021-05-23 02:34] LABS: WHITE BLOOD COUNT 9.4 K/mm3 (4.0-10.0)
[2021-05-23 02:35] LABS: BASO % 0.5 % (0-2.0); EOS % 4.4 % (0-4.5); HEMATOCRIT 36.1 % (32.4-45.2); HEMOGLOBIN 12.4 GM/dL (10.7-15.3); LYMPH % 29.7 % (8-40); MCH 29.5 pg (25.7-33.7); MCHC 34.3 g/dl (32.0-36.0); MEAN CELL VOLUME 85.9 fl (80-96); MEAN PLT VOLUME 8.8 fl (7.5-11.1); MONO % 8.8 % (3.8-10.2); NEUT % 56.6 % (42.8-82.8); PLATELET COUNT 161 10^3/uL (134-434); RDW 13.8 % (11.6-15.6)
[2021-05-23 02:53] LABS: CHLORIDE 101 mmol/L (98-107); SODIUM 141 mmol/L (136-145)
[2021-05-23 02:55] LABS: CALCIUM 8.6 mg/dL (8.5-10.1)
[2021-05-23 02:56] LABS: ALBUMIN 3.8 g/dl (3.4-5.0); ANION GAP 5 MMOL/L (8-16); BLOOD UREA NITROGEN 52.4 mg/dL (7-18); CO2 35 mmol/L (21-32); GLUCOSE,RANDOM 110 mg/dL (74-106)
[2021-05-23 02:59] LABS: CREATININE 1.9 mg/dL (0.55-1.3); SGOT/AST 19 U/L (15-37); SGPT/ALT 21 U/L (13-61)
[2021-05-23 03:00] LABS: BILIRUBIN,TOTAL 0.5 mg/dL (0.2-1); TOT PROT 6.4 g/dl (6.4-8.2)
[2021-05-23 03:02] LABS: ALK PHOS 85 U/L (45-117)
[2021-05-23 04:48] LABS: PH,URINE 6.5 (5.0-8.0); URINE APPEARANCE CLEAR; URINE BILIRUBIN NEGATIVE (NEGATIVE); URINE COLOR YELLOW; URINE GLUCOSE (UA) NEGATIVE (NEGATIVE); URINE KETONE NEGATIVE (NEGATIVE); URINE LEUK ESTERASE NEGATIVE (NEGATIVE); URINE NITRITE NEGATIVE (NEGATIVE); URINE PROTEIN NEGATIVE (NEGATIVE); URINE UROBILINOGEN 0.2 mg/dL (0.2-1.0)
[2021-05-23] MEDS ORDERED: SODIUM CHLORIDE 1,000 ML IV STA (04:52)
[2021-05-23] MEDS ORDERED: SODIUM CHLORIDE 500 ML IV STA (05:39)
[2021-05-23] MEDS ORDERED: HEPARIN NA (PORCINE) 5,000 UNITS/ML 1ML VIAL ONE ×2 (06:40→16:13)
[2021-05-23] MEDS: HEPARIN NA (PORCINE) 5,000 UNITS/ML 1ML VIAL SQ SCH ×3 (06:54→22:44)
[2021-05-23] MEDS ORDERED: LEVOTHYROXINE NA 25 MCG TABLET (FP) PO SCH (07:00)
[2021-05-23] MEDS ORDERED: LEVOTHYROXINE NA 150 MCG TABLET PO ONE (07:01)
[2021-05-23 08:31] LABS: INR 0.99 (0.83-1.09)
[2021-05-23 08:33] LABS: ACTIVATED PTT 25.1 SECONDS (25.2-36.5)
[2021-05-23 08:41] LABS: CHLORIDE 103 mmol/L (98-107); SODIUM 141 mmol/L (136-145)
[2021-05-23 08:44] LABS: ANION GAP 9 MMOL/L (8-16); BLOOD UREA NITROGEN 50.1 mg/dL (7-18); CALCIUM 8.9 mg/dL (8.5-10.1); CO2 29 mmol/L (21-32); GLUCOSE,RANDOM 99 mg/dL (74-106)
[2021-05-23 08:48] LABS: CREATININE 1.7 mg/dL (0.55-1.3)
[2021-05-23] MEDS ORDERED: ACETAMINOPHEN 325 MG TABLET (FP) ONE (08:52)
[2021-05-23] MEDS ORDERED: ASPIRIN COATED 81 MG TABLET.EC ONE (08:52)
[2021-05-23] MEDS ORDERED: PANTOPRAZOLE 20 MG TABLET PO ONE (08:52)
[2021-05-23] MEDS: LEVOTHYROXINE 100 MCG, LEVOTHYROXINE 75 MCG PO SCH (09:28)
[2021-05-23] MEDS: PANTOPRAZOLE 20 MG TABLET PO SCH (09:38)
[2021-05-23] MEDS: ASPIRIN 81 MG CHEWABLE TABLETS PO SCH (09:38)
[2021-05-23] MEDS: ACETAMINOPHEN 325 MG TABLET (FP) PO SCH ×2 (09:38→22:46)
[2021-05-23] MEDS: DOXEPIN HCL 10 MG CAPSULE PO SCH (10:47)
[2021-05-23] MEDS ORDERED: POTASSIUM CHLORIDE TABS 20 MEQ TABLET.ER (FP) PO ONE ×2 (13:28→13:46)
[2021-05-23 18:01] LABS: CHLORIDE 103 mmol/L (98-107); SODIUM 141 mmol/L (136-145)
[2021-05-23 18:04] LABS: ANION GAP 6 MMOL/L (8-16); CALCIUM 8.9 mg/dL (8.5-10.1); CO2 32 mmol/L (21-32)
[2021-05-23 18:05] LABS: BLOOD UREA NITROGEN 45.5 mg/dL (7-18); GLUCOSE,RANDOM 88 mg/dL (74-106)
[2021-05-23 18:08] LABS: CREATININE 1.7 mg/dL (0.55-1.3)
[2021-05-23] MEDS ORDERED: ROSUVASTATIN CA 10 MG TABLET (FP) PO SCH (22:00)
[2021-05-23] MEDS ORDERED: DOXEPIN HCL 25 MG CAPSULE PO SCH (22:00)
[2021-05-23 23:59] VITALS: BMI 29.9
[2021-05-24] MEDS ORDERED: LEVOTHYROXINE NA 100 MCG TABLET (FP) ONE (05:06)
[2021-05-24] MEDS ORDERED: LEVOTHYROXINE NA 75 MCG TABLET (FP) ONE (05:06)
[2021-05-24] MEDS: LEVOTHYROXINE 100 MCG, LEVOTHYROXINE 75 MCG PO SCH (06:27)
[2021-05-24] MEDS: HEPARIN NA (PORCINE) 5,000 UNITS/ML 1ML VIAL SQ SCH (06:27)
[2021-05-24 07:17] LABS: BASO % 0.4 % (0-2.0); EOS % 5.3 % (0-4.5); HEMATOCRIT 37.6 % (32.4-45.2); HEMOGLOBIN 12.8 GM/dL (10.7-15.3); LYMPH % 30.5 % (8-40); MCH 29.3 pg (25.7-33.7); MEAN CELL VOLUME 86.4 fl (80-96); MEAN PLT VOLUME 8.7 fl (7.5-11.1); MONO % 7.8 % (3.8-10.2); PLATELET COUNT 160 10^3/uL (134-434); RBC 4.35 M/mm3 (3.60-5.2); WHITE BLOOD COUNT 7.3 K/mm3 (4.0-10.0)
[2021-05-24 07:42] LABS: CALCIUM 8.6 mg/dL (8.5-10.1)
[2021-05-24 07:43] LABS: ALBUMIN 3.4 g/dl (3.4-5.0); BLOOD UREA NITROGEN 39.6 mg/dL (7-18)
[2021-05-24 07:44] LABS: MAGNESIUM 2.5 mg/dL (1.8-2.4)
[2021-05-24 07:45] LABS: URIC ACID 11.9 mg/dL (2.6-7.2)
[2021-05-24 07:46] LABS: CREATININE 1.5 mg/dL (0.55-1.3); PHOSPHOROUS 3.5 mg/dL (2.5-4.9)
[2021-05-24 07:47] LABS: BILIRUBIN,TOTAL 0.5 mg/dL (0.2-1)
[2021-05-24 07:48] LABS: TOT PROT 5.8 g/dl (6.4-8.2)
[2021-05-24] MEDS: ASPIRIN 81 MG CHEWABLE TABLETS PO SCH (10:51)
[2021-05-24] MEDS: PANTOPRAZOLE 20 MG TABLET PO SCH (10:51)
[2021-05-24] MEDS: DOXEPIN HCL 10 MG CAPSULE PO SCH (10:51)
[2021-05-24] MEDS: ACETAMINOPHEN 325 MG TABLET (FP) PO SCH (10:52)
[2021-05-24 14:57] VITALS: BP 151/64; PULSE 76; TEMP 98.1
== END 2021-05-24 16:24 | disposition home health service (06) | DRG 312 ==
LOC: JER 00:10 → JERBED 04:34 → J4W 21:53
PROVIDERS: ADMIT Internal Medicine; ATTEND Family Medicine
DX: I95.1 Orthostatic hypotension (principal); N17.9 Acute kidney failure, unspecified; I13.0 Hypertensive heart and chronic kidney disease with heart failure and stage 1 through stage 4 chronic kidney disease, or unspecified chronic kidney disease; N18.4 Chronic kidney disease, stage 4 (severe); E03.9 Hypothyroidism, unspecified; R00.1 Bradycardia, unspecified; F32.9 Major depressive disorder, single episode, unspecified; I10 Essential (primary) hypertension; R60.9 Edema, unspecified; I50.9 Heart failure, unspecified; E87.6 Hypokalemia; E79.0 Hyperuricemia without signs of inflammatory arthritis and tophaceous disease; R60.0 Localized edema; Z96.642 Presence of left artificial hip joint
CPT/HCPCS: 36415; 70450-TC; 71045-TC-FY; 76775-TC; 80048; 80053; 81003; 82436; 82570; 83735; 83880; 84100; 84133; 84300; 84443; 84484; 84550; 85025; 85610; 85730; 87086; 93005; 93010; 97116-GP; 97161-GP; 99285-25; C9803; J1644; U0003; U0005

== ENCOUNTER 2021-07-12 08:41 | Day surgery (SDC) | payer OTHER, BC ==
[2021-07-07 14:54] VITALS: BMI 28.2
[2021-07-12] MEDS ORDERED: CYCLOPENTOLATE 2% OPHTH SOLN 2 ML BOTTLE ONE (09:36)
[2021-07-12] MEDS ORDERED: CIPROFLOXACIN 0.3% EYE DROPS 5 ML BOTTLE ONE (09:37)
[2021-07-12] MEDS ORDERED: PHENYLEPHRINE 2.5% OPHTH SOLN 15 ML BOTTLE ONE (09:37)
[2021-07-12] MEDS ORDERED: TROPICAMIDE 1% OPHTH SOLN 15 ML BOTTLE ONE (09:37)
[2021-07-12] MEDS ORDERED: CYCLOPENTOLATE 2% OPHTH SOLN 2 ML BOTTLE OD ONE ×3 (10:10→10:20)
[2021-07-12] MEDS ORDERED: PHENYLEPHRINE 2.5% OPHTH SOLN 15 ML BOTTLE OD ONE ×3 (10:10→10:20)
[2021-07-12] MEDS ORDERED: CIPROFLOXACIN 0.3% EYE DROPS 5 ML BOTTLE OD ONE ×3 (10:10→10:20)
[2021-07-12] MEDS ORDERED: TROPICAMIDE 1% OPHTH SOLN 15 ML BOTTLE OD ONE ×3 (10:10→10:20)
[2021-07-12 10:12] VITALS: TEMP 97.8
[2021-07-12] MEDS ORDERED: MIDAZOLAM HCL 2 MG/2 ML SINGLE DOSE VIAL ONE (11:14)
[2021-07-12] MEDS ORDERED: TETRACAINE 0.5% OPHTH SOLN 2 ML BOTTLE ONE (11:20)
[2021-07-12] MEDS ORDERED: BSS (NA/CA/MG/K) BALANCED SALT SOLUTION OPHTH SOLN 15 ML BOTTLE ONE (11:20)
[2021-07-12] MEDS ORDERED: NEO/POLYMYX B SULF/DEXAMETH OPHTHALMIC 5ML BOTTLE ONE (11:20)
[2021-07-12] MEDS ORDERED: LIDOCAINE 1% P/F 10 MG/ML VIAL ONE (11:20)
[2021-07-12] MEDS ORDERED: CARBACHOL 0.01% INTRA-OCULAR 1.5 ML VIAL ONE (11:20)
[2021-07-12 12:13] VITALS: BP 132/67
[2021-07-12 12:48] VITALS: PULSE 68
== END 2021-07-12 12:30 | disposition home or self-care (01) ==
LOC: FASU 08:41
PROVIDERS: ATTEND Ophthalmology
PROC: 08RJ3JZ Replacement of Right Lens with Synthetic Substitute, Percutaneous Approach (ICD-10-PCS; principal; 2021-07-12 10:30)
DX: H26.8 Other specified cataract (principal)